=== PATIENT | female | born 1945 | race Caucasian/White ===

== ENCOUNTER 2020-01-07 10:31 | Inpatient (IN) | payer OTHER, MEDICARE ==
[~2020-01-07] VITALS: Ht 154.9 cm; Wt 39.9 kg
--- NOTE | ~2020-01-07 | H ---
[facility] [place] [address] HISTORY AND PHYSICAL Name: SOLIS QUIGLEY Room #: 150-1 [facility] M.R.#: [id number] Admission: 01/07/20 Attend Phys: Scar Madrigal MD Discharge: Date of : 45 Report #: [id number] THIS REPORT FOR: cc: SUSAN - Family physician unknown FAM - Family physician unknown Scar Madrigal MD ~ CC: SUSAN unknown Scar Madrigal ADMITTING DIAGNOSES: Saw injury to the left arm, posttraumatic; acute cholecystitis. Treated with gallbladder drain, here for laparoscopic cholecystectomy. HISTORY OF PRESENT ILLNESS: The patient is a 74-year-old who was originally admitted after injuring her arm with a table saw. The patient went to surgery for repair and then subsequently the next day was complaining of abdominal pain. The pain persisted and she had a CAT scan and it showed that her gallbladder was markedly inflamed. She has done well with the gallbladder draining and antibiotic treatment. She is now ready to have her gallbladder removed. She did go to rehab and has done well. She says she has not smoked anymore, but has been using e-cigarette. She does have COPD from chronic smoking and she has been seen by the lung doctor who felt that she has good to go for surgery. The patient has been seen by me. The gallbladder drain has been working. Her abdomen is soft. She has stopped her Eliquis for atrial fib couple of days ago. MEDICATIONS: Advair Diskus, albuterol, multivitamin, Cardizem-CD 240 mg once a day, Montelukast 10 mg, aspirin, pravastatin, omega 3, Eliquis 5 mg twice a day which was stopped and did not take any dose on Friday or . PAST MEDICAL HISTORY: COPD, atrial fib, high blood pressure, long-term tobacco use, chronic hypoxic respiratory failure. PAST SURGICAL HISTORY: Hernia surgery, hysterectomy and recent gallbladder drain placement. FAMILY HISTORY: Unremarkable. The patient does occasionally drink beer. She has been using e-cigarette currently. SOCIAL HISTORY: She is retired, lives down the ____. ALLERGIES: He is not allergic to anything. REVIEW OF SYSTEMS: No shortness of breath, chest pain or palpitation. Bowels are working. Appetite is good. PHYSICAL EXAMINATION: GENERAL: The patient is a thin female, in no acute distress. She weighs 94 [facility] [address] [place] [address] HISTORY AND PHYSICAL Name: SOLIS QUIGLEY Room #: 150-1 [facility] M.R.#: [id number] Admission: 01/07/20 Attend Phys: Scar Madrigal MD Discharge: Date of : 45 Report #: [id number]. HEENT: Pupils react to light. Sclerae are nonicteric. NECK: Soft and supple, no masses, no JVD. LUNGS: Clear. Normal respiratory effort. No wheezes. HEART: Regular rate and rhythm. No murmur or gallop. ABDOMEN: Soft, nondistended, nontender. Gallbladder drain is in place. No guarding. EXTREMITIES: No cyanosis, clubbing or edema, few weeks ago, she was quite edematous, but that has resolved with diuretics. IMPRESSION: The patient with acute cholecystitis after a traumatic injury to her left arm with a table saw. She bled quite heavily and she was on Coumadin at that time. Because of the injury, stress, her gallbladder got inflamed. She does have gallstones. This was treated with gallbladder drain and antibiotics which she did do well with. She is now here for gallbladder surgery to remove the gallbladder and gallstones to prevent further attack. The patient understands the procedure and wishes to proceed. By: [id number] Scar Madrigal MD /nt
--- NOTE | ~2020-01-07 | O ---
[facility] [place] [address] OPERATIVE REPORT Name: SOLIS QUIGLEY Room #: 455-P [facility] IN M.R.#: [id number] Admission: 01/07/20 Attend Phys: Scar Madrigal MD Discharge: 01/08/20 Date of : 45 Report #: [id number] THIS REPORT FOR: cc: SUSAN - Family physician unknown FAM - Family physician unknown Scar Madrigal MD ~ CC: SUSAN unknown Scar Madrigal DATE OF SERVICE: 01/07/2020 PREOPERATIVE DIAGNOSES: 1. Acute cholecystitis, treated with cholecystostomy tube. 2. Cholelithiasis. POSTOPERATIVE DIAGNOSES: 1. Acute cholecystitis, treated with cholecystostomy tube. 2. Cholelithiasis. PROCEDURE PERFORMED: Laparoscopic cholecystectomy with cholangiogram. COMPLICATIONS: None. ESTIMATED BLOOD LOSS: 5 mL. PROCEDURE NOTE: With the patient under general anesthesia, abdomen was prepped and draped in sterile fashion. A 2 cm curved incision was made infraumbilically. Fascia was then opened under visualization, 0 Vicryl suture placed on the fascia for retraction. Veress needle was then placed through the peritoneum. Abdominal cavity was insufflated with CO2 without difficulty. An 11 mm trocar was then placed into the pneumoperitoneum under visualization. No harm to underlying tissue. The patient is quite tiny; the right edge of the liver is almost in line with the camera. Two 5 mm trocars were placed in the right upper quadrant. The drain coming into the gallbladder was identified. The gallbladder was lifted over the liver. Drain was then divided and then removed from the gallbladder. The proximal gallbladder was identified without difficulty. The peritoneum was dissected free over the cystic duct. The cystic duct was isolated. Cystic duct was moderately dilated. Cystic duct was isolated. Clip was placed in junction of cystic duct to the gallbladder. Opening was made in the cystic duct. Clear bile came out. Cholangiogram catheter was placed. Fluoroscopic cholangiogram was obtained. Common bile duct filled out well. The cholangiogram catheter was identified in the cystic duct, no harm to see in the common duct. The cholangiogram catheter was then removed. The proximal cystic ducts were then clipped x 2. Cystic duct was then divided. Cystic artery was then found. Cystic artery was clipped x 2 proximally and 1 distally and then divided. Gallbladder was then freed from the liver bed [address] [address] OPERATIVE REPORT Name: SOLIS QUIGLEY JD Room #: 455-P [facility] IN [facility].#: [id number] Admission: 01/07/20 Attend Phys: Scar Madrigal MD Discharge: 01/08/20 Date of : 45 Report #: [id number] without difficulty. The gallbladder was then placed in a specimen bag, retrieved through the infraumbilical port. The liver bed was hemostatic. Irrigation was performed. Irrigation was aspirated out. CO2 was evacuated. Trocars were removed. The fascia defect infraumbilically was closed with [id number] 0 Vicryl x 2. Skin was irrigated. Skin was closed with 5-0 PDS. Steri-Strip, Band-Aids applied. The patient tolerated the procedure well. By: [id number] Scar Madrigal MD /nt
[~2020-01-07 10:31] MED LIST: ADVAIR 250-501 EACH INH; ASA81BEC PO; DILTIAZEM 24HR120 M1 PO; ELIQUIS5 MG PO; FERRETTS325 MG PO; FISH OIL 1,0001 EAC9 PO; FLOMAX0.4 MG PO; METOCLOPRAMIDE10 MG PO; MULTIVITAMINS1 EAC7 PO; PRAVASTATIN SOD40 MG PO; PROAIR HFA8.5 GM INH; PROTONIX40 M2 PO; SINGULAIR 10 MG10 MG PO; VITAMIN D3125 MC2 PO; VITAMIN D325 MC3 PO
[2020-01-07 11:09] LABS: HEMATOCRIT 36.4 % (37.0-47.0); HEMOGLOBIN 12.2 gm/dL (12.0-15.0)
[2020-01-07 11:20] VITALS: BP 151/86
[2020-01-07 11:24] LABS: PROTIME 10.4 Seconds (9.3-11.4)
[2020-01-07 16:52] VITALS: BP 134/84
--- NOTE | 2020-01-07 18:36 | NUR ---
Pt arrived to unit ped bed from recovery room accompanied by drt at 1620 in stable condition.Post op assessment completed.vss.Clear liq given and well tolerated.Dtr at bs till 1800.No verbal c/o. Will continue to monitor.
[2020-01-08 04:13] VITALS: BP 121/87
[2020-01-08 09:33] VITALS: BP 143/73
[2020-01-08] MEDS ORDERED: PERCOCET 5-3251 EACH PO (12:40)
[2020-01-08 12:58] VITALS: BP 143/73
--- NOTE | 2020-01-08 13:55 | NUR ---
Assumed care of pt. at 0700. Pt. is in no pain at this time. Post-operative wound present no drainage or signs of infection. Pt. is ambulating with little assistance and gait belt. She is tolerating meals and medications on soft diet. Pt. anxious for D/C to home today. Dr. Madrigal rounded on pt. around noon and d/c order noted. D/c summary compiled and reviewed with pt. and daughter. Saline lock dc. at 1350, pt d/c in w/ daughter accompanied by this RN.
--- NOTE | 2020-01-10 17:04 | PATH ---
[facility] [address] [place] [address] PATHOLOGY RPT PROCEDURE Name: SOLIS QUIGLEY Room #: 455-P [facility] IN M.R.#: [id number] Admission: 01/07/20 Date of : 45 Discharge: 01/08/20 Report #: [id number] Path Case #: [id number] [facility] Accession Number: [id number] . 01 Material submitted: . gallbladder - GALLBLADDER . 01 Clinical history: . cholecystitis . 02 Diagnosis: Gallbladder, cholecystectomy: - Mild chronic cholecystitis. - Reactive incidental cauterized lymph node. (IUV/db; 01/10/2020) LBQ 01/10/2020 1433 Local . 02 Electronically signed: . Lili Del Cid MD, Pathologist NPI- [id number] . 01 Gross description: . The specimen is received in formalin, labeled "Gilbert, Solis, gallbladder" and consists of a previously opened green gallbladder measuring 7.8 x 2.7 x 0.6 cm. The margin is inked. It contains green bile and no stones are present. The mucosa is red acevedo to green and granular with a wall thickness of 0.1 cm. A possible lymph node is present. No gross lesions are identified. Line Service Supervisor sections are submitted in A1. (MI; 01/07/2020) JFQ/EVONNE 01/07/2020 1803 Local . 02 Pathologist provided ICD-10: K81.1 . 02 CPT . 772100 Specimen Comment: A courtesy copy of this report has been sent to [phone] Specimen Comment: Report sent to Performed at: [address], [place] [id number] MD John Meyer MD Phone: [phone] Performed at: [address] [id number] MD Lili Del Cid MD Phone: [phone]
== END 2020-01-08 14:29 | disposition home or self-care (01) | DRG 419 ==
LOC: TBA 10:31 → OR 10:31 → 4W 16:52
PROVIDERS: ADMIT Surgery; ATTEND Surgery
PROC: 0FT44ZZ Resection of Gallbladder, Percutaneous Endoscopic Approach (ICD-10-PCS; principal; 2020-01-07)
PROC: BF121ZZ Fluoroscopy of Gallbladder using Low Osmolar Contrast (ICD-10-PCS; principal; 2020-01-07)
DX: K80.00 Calculus of gallbladder with acute cholecystitis without obstruction (principal); J44.9 Chronic obstructive pulmonary disease, unspecified; Z20.828 Contact with and (suspected) exposure to other viral communicable diseases; I48.91 Unspecified atrial fibrillation; Z90.710 Acquired absence of both cervix and uterus; Z79.899 Other long term (current) drug therapy
CPT/HCPCS: 10047; 50010; 50101; 50249; 50411; 50555; 50558; 51489; 52265; 53307; 53310; 53312; 55245; 55317; 56462; 56525; 56526; 62110; 62900; 70005